=== PATIENT | female | born 1980 | race African-American/Black ===

== ENCOUNTER 2025-03-27 23:40 | Emergency (ER) | payer OTHER ==
[~2025-03-27] VITALS: Ht 165.1 cm; Wt 104.8 kg
[2025-03-27] MEDS ORDERED: DEXAMETHASONE SOD PHOS 10 MG/1 ML VIAL IV ONE (23:45)
[2025-03-27] MEDS: DIPHENHYDRAMINE HCL INJ 50 MG/ML VIAL IV PRN (23:57)
[2025-03-27] MEDS: DEXAMETHASONE SOD PHOS INJ 4 MG/ML SDV IV ONE (23:57)
[2025-03-28] MEDS: ALBUTEROL/IPRATROPIUM 3 ML NEB NEB ONE (00:19)
[2025-03-28] MEDS ORDERED: VENTOLIN HFA18 GM INH (00:29)
[2025-03-28] MEDS ORDERED: PREDNISONE20 MG PO (00:30)
[2025-03-28 00:32] VITALS: PULSE 82; RESP 20; TEMP 98
[2025-03-28 00:36] VITALS: BP 163/91; PULSE 82; RESP 20; TEMP 98; O2SAT 98
== END 2025-03-28 00:39 | disposition home or self-care (01) ==
LOC: FSED 23:44
DX: R06.00 Dyspnea, unspecified (principal); T78.40XA Allergy, unspecified, initial encounter; I10 Essential (primary) hypertension; E11.9 Type 2 diabetes mellitus without complications; E78.5 Hyperlipidemia, unspecified
CPT/HCPCS: 96374; 96375; 99284; J1100; J1200